=== PATIENT | male | born 1975 | race Caucasian/White ===

== ENCOUNTER 2024-11-08 14:09 | Outpatient (AMB) | payer MEDICAID, SELFPAY ==
--- NOTE | 2024-11-08 14:33 | ORTHONT_ITS ---
Vital signs 11/08/24 14:38 Height 1.78 m Height Method Stated Weight 61.405 kg Weight Measurement Method Standing Scale BMI 19.4 BP 114/20 L Blood Pressure Source Automatic Cuff Blood Pressure Location Left Upper Arm Position Sitting Respiration 16 Pulse 75 Pulse Source Monitor Temp 98.1 F Temp Source Temporal Artery Scan Pulse Oximetry (%) 98 Oxygen Delivery Method Room Air Med/Allergies Allergies & Medications Allergies No Known Allergies Allergy (Verified 11/08/24 14:39) Medication Reconciliation meloxicam 7.5 mg tablet 7.5 mg PO QDAY #45 tabs 11/08/24 [Rx] Exam Exam Patient is in no acute distress and is cooperative with the examination today. Breathing is nonlabored. In no respiratory distress. Patient has no paraspinal tenderness. Spinal deformity cannot be appreciated. The gait of the patient is nonantalgic Bilateral extremities were evaluated and demonstrates sensation intact to light touch. Palpable pedal pulses are present. No significant edema is present. Bilateral knees were examined and the patient has full strength and range of motion.. The right hip was examined. Patient was able to flex to 90 degrees, adduct to 30 degrees, abduct to 40 degrees, internally rotate to 20 degrees, and externally rotate to 20 degrees. Patient has a negative logroll. Stinchfield is negative. The patient is nontender diffusely to touch. The left hip was examined. Patient was able to flex to 90 degrees, adduct to 30 degrees, abduct to 40 degrees, internally rotate to 20 degrees, and externally rotate to 20 degrees. Patient has a negative logroll. The stinchfield is negative. Assessment and Plan Problem List (1) Pain in left hip: Status: Acute Plan: Patient is a pleasant 49-year-old male with left hip pain. I would want to see x-rays to see how bad his arthritis is. It could be from the back as well. He reports that he is still functioning very well and he does not want surgery. 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 Level 4 ([id number]) MA Intake Visit Data Collection New Patient or Established: New Patient (never been to [facility]) Reason for Visit:: BL HIP PAIN Seen by Clinical Staff ONLY (RN/MA): No PCP or OBGYN visit in last 3 months: Yes Hx Now: No Do You Feel Safe at Home: Yes Authorities Contacted: N/A Questionairres Past Medical History Past Medical History Have you ever been diagnosed with any of the following: Neurological Problems Cerebrovascular Accident (CVA): No Transient Ischemic Attacks (TIA): No Dementia: No Alzheimer's Disease: No Parkinson's Disease: No Seizures: No Cardiology Problems Congestive Heart Failure: No Respiratory Problems Chronic Obstructive Pulmonary Disease (COPD): No Genital/Urinary Problems Renal Disease: No Endocrine Problems Diabetes Mellitus Type 1: No Diabetes Mellitus Type 2: No Other Problems Hospitalization: No Shingles: No Falls: No Blood Transfusions: No Anesthesia Reactions: No Chicken Pox: Yes Subjective Visit Visit for: new patient and hip Immunization / Flu Flu Vaccine in the Last 12 Months: No Flu Vaccine Exclusion Criteria: Refused by Patient History of Present Illness Chief complaint: Left hip pain Aj is a pleasant 41-year-old male with left hip pain. This been ongoing for a while. He reports that he has pain when he coughs knee region without a hernia. He has not really any pain in his groin. It does not hurt when he walks Personal History Occupation: CONSTRUCTION Pain Pain level (0-10): 2 Pain duration: ON AND OFF Pain location: groin Pain quality: aching Pain timing: increases with activity Associated signs & symptoms: none Ambulatory data Ambulatory device: none Treatments Number of previous injections: 0 Improvement with previous injections: No Improvement with PT: No Improvement with NSAIDS: no Review of Systems Review of Systems: All systems negative unless otherwise noted in HPI.
[2024-11-08 14:38] VITALS: BP 114/20; PULSE 75; RESP 16; TEMP 36.7; O2SAT 98; BMI 19.4
--- NOTE | 2024-11-08 14:51 | XR_ITS ---
Examination:Left hip AP, lateral, AP pelvis 3 views Technique: Hip AP lateral, AP pelvis, 3 views Exam date and time:November 08, 2024 at 1457 hours INDICATIONS: Left hip pain beginning 2 months ago. FINDINGS: Mild bilateral hip osteoarthritis No hip or pelvic fracture Bones of the pelvis intact IMPRESSION: Mild bilateral hip osteoarthritis.
== END 2024-11-08 14:53 | disposition home or self-care (01) ==
PROVIDERS: PCP Behavior Technician; Referring Provider Behavior Technician; Supervising Provider Orthopaedic Surgery Adult Reconstructive Orthopaedic Surgery; Visit Provider Orthopaedic Surgery Adult Reconstructive Orthopaedic Surgery
DX: M25.552 Pain in left hip (principal); M16.0 Bilateral primary osteoarthritis of hip
CPT/HCPCS: 73502; 99204; G0463

== ENCOUNTER 2024-11-22 15:06 | Outpatient (AMB) | payer MEDICAID, SELFPAY ==
[2024-11-22 15:34] VITALS: BP 107/71; PULSE 67; RESP 18; TEMP 36.6; O2SAT 97; BMI 19.2
--- NOTE | 2024-11-22 15:34 | ORTHONT_ITS ---
Vital signs 11/22/24 15:34 Height 1.78 m Height Method Stated Weight 60.923 kg Weight Measurement Method Standing Scale BMI 19.2 BP 107/71 Blood Pressure Source Automatic Cuff Blood Pressure Location Left Upper Arm Position Sitting Respiration 18 Pulse 67 Pulse Source Monitor Temp 97.8 F Temp Source Temporal Artery Scan Pulse Oximetry (%) 97 Oxygen Delivery Method Room Air Med/Allergies Allergies & Medications Allergies No Known Allergies Allergy (Verified 11/22/24 15:35) Medication Reconciliation meloxicam 7.5 mg tablet 7.5 mg PO QDAY #45 tabs 11/08/24 [Rx Confirmed 11/22/24] celecoxib 200 mg capsule (Celebrex) 200 mg PO BID #60 caps 11/22/24 [Rx] Exam Exam Patient is in no acute distress and is cooperative with the examination today. Breathing is nonlabored. In no respiratory distress. Patient has no paraspinal tenderness. Spinal deformity cannot be appreciated. The gait of the patient is nonantalgic Bilateral extremities were evaluated and demonstrates sensation intact to light touch. Palpable pedal pulses are present. No significant edema is present. Bilateral knees were examined and the patient has full strength and range of motion.. The right hip was examined. Patient was able to flex to 90 degrees, adduct to 30 degrees, abduct to 40 degrees, internally rotate to 20 degrees, and externally rotate to 20 degrees. Patient has a negative logroll. Stinchfield is negative. The patient is nontender diffusely to touch. The left hip was examined. Patient was able to flex to 90 degrees, adduct to 30 degrees, abduct to 40 degrees, internally rotate to 20 degrees, and externally rotate to 20 degrees. Patient has a negative logroll. The stinchfield is negative. Bilateral hip x-rays demonstrate minimal arthritis. He does have hip dysplasia of both hips. He has a high tonus angle Assessment and Plan Problem List (1) Pain in left hip: Status: Acute Plan: Patient is a pleasant 49-year-old male with left hip pain. He has hip dysplasia and minimal arthritis. We discussed anti-inflammatories, injections, and physical therapy. He would like to continue with home exercises as well as anti-inflammatories. He did not like meloxicam and we will try Celebrex. Office Procedures GNS Level of Care Nursing/Assessment Patient Status: Established Patient Nursing Assessment/Reassesment: Medication Reconciliation, Update PMH in EMR and Vital Signs Coordination of Care: Complex Care and Chronic Disease 1-5, Education Complex Pt/Fam, Consent,records obtained, informed consent, Results/Orders obtained and Staff clarify orders Established Patient Charge Established Patient Point Assignment: 95 Established Patient Point Charge: EP Level 3 (80-115) MA Intake Visit Data Collection New Patient or Established: Established Patient (seen at [facility] within 3 years) Reason for Visit:: BL HIP PAIN XRAY RESULTS Seen by Clinical Staff ONLY (RN/MA): No PCP or OBGYN visit in last 3 months: Yes Hx Now: No Do You Feel Safe at Home: Yes Authorities Contacted: N/A Questionairres Past Medical History Past Medical History Have you ever been diagnosed with any of the following: Neurological Problems Cerebrovascular Accident (CVA): No Transient Ischemic Attacks (TIA): No Dementia: No Alzheimer's Disease: No Parkinson's Disease: No Seizures: No Cardiology Problems Congestive Heart Failure: No Respiratory Problems Chronic Obstructive Pulmonary Disease (COPD): No Genital/Urinary Problems Renal Disease: No Endocrine Problems Diabetes Mellitus Type 1: No Diabetes Mellitus Type 2: No Other Problems Hospitalization: No Shingles: No Falls: No Blood Transfusions: No Anesthesia Reactions: No Chicken Pox: Yes Subjective Visit Visit for: follow up visit, hip and x-rays (RESULTS) Immunization / Flu Flu Vaccine in the Last 12 Months: No Flu Vaccine Exclusion Criteria: Refused by Patient History of Present Illness Chief complaint: Left hip pain Aj is a pleasant 41-year-old male with left hip pain. This been ongoing for a while. He reports that he has pain when he coughs knee region without a hernia. He has not really any pain in his groin. It does not hurt when he walks Personal History Occupation: CONSTRUCTION Pain Pain level (0-10): 2 Pain duration: ON AND OFF Pain location: groin Pain quality: aching Pain timing: increases with activity Associated signs & symptoms: none Ambulatory data Ambulatory device: none Treatments Number of previous injections: 0 Improvement with previous injections: No Improvement with PT: No Improvement with NSAIDS: no Review of Systems Review of Systems: All systems negative unless otherwise noted in HPI.
== END 2024-11-22 15:59 | disposition home or self-care (01) ==
LOC: HODSRG 15:06
PROVIDERS: PCP Behavior Technician; Referring Provider Behavior Technician; Supervising Provider Orthopaedic Surgery Adult Reconstructive Orthopaedic Surgery; Visit Provider Orthopaedic Surgery Adult Reconstructive Orthopaedic Surgery
DX: M25.552 Pain in left hip (principal); Q74.2 Other congenital malformations of lower limb(s), including pelvic girdle; M16.0 Bilateral primary osteoarthritis of hip
CPT/HCPCS: 99213; G0463